=== PATIENT | male | born 1960 ===

== ENCOUNTER 2018-12-13 17:44 | Emergency (ER) | payer OTHER ==
[2018-12-13 19:26] VITALS: BMI 40.8
--- NOTE | 2018-12-13 19:51 | ED PDOC ---
Arrival/HPI - General Chief Complaint: Medical Clearance Time Seen by Provider: 12/13/18 19:22 Historian: Patient - History of Present Illness Narrative History of Present Illness (Text): 12/13/18 19:36 58 year old male, whose past medical history includes diabetes, who presents to the Emergency department for "not feeling right today" after starting a new hypoglycemic medication this morning. Patient reports he went to his PMD yesterday and was told his sugar was high, which has never happened to him before. Patient notes he went to work today and started to feel anxious after his coworkers and him were talking about it. Patient states Dr. Gupta told him to come in for blood work in 6 weeks after making diet changes. Patient denies vomiting, fevers, chills or any other complaints. PMD: Konrad Peralta Time/Duration: Prior to Arrival Symptom Onset: Sudden Symptom Course: Resolved Activities at Onset: Light Past Medical History - Provider Review Nursing Documentation Reviewed: Yes - Past History Past History: No Previous - Infectious Disease Hx of Infectious Diseases: None - Tetanus Immunization Tetanus Immunization: Unknown - Past Medical History Past Medical History: No Previous - Endocrine/Metabolic Hx Diabetes Mellitus Type 2: Yes - Psychiatric Hx Depression: Yes Hx Emotional Abuse: No Hx Physical Abuse: No Hx Substance Use: Yes (6 YEARS AGO) - Past Surgical History Past Surgical History: No Previous - Anesthesia Hx Anesthesia: No Hx Anesthesia Reactions: No Hx Malignant Hyperthermia: No - Suicidal Assessment Feels Threatened In Home Enviroment: No Family/Social History - Physician Review Nursing Documentation Reviewed: Yes Family/Social History: No Known Family HX Smoking Status: Former Smoker Hx Alcohol Use: No Hx Substance Use: Yes (6 YEARS AGO) Hx Substance Use Treatment: No Allergies/Home Meds Allergies/Adverse Reactions: Allergies Iodinated Contrast- Oral and IV Dye [Iodinated Contrast Media - IV Dye] Allergy (Verified 12/13/18 19:26) ANAPHYLAXIS shellfish derived Allergy (Verified 12/13/18 19:26) ANAPHYLAXIS Home Medications: Home Meds Medication Instructions Recorded Confirmed Amoxicillin [Amoxil 500 mg Cap] 500 mg PO TID 10/05/16 10/05/16 Canagliflozin [Invokana] 100 mg PO DAILY 10/05/16 10/05/16 Review of Systems - Physician Review All systems were reviewed & negative as marked: Yes - Review of Systems Constitutional: Normal. absent: Fevers, Night Sweats Gastrointestinal: Normal. absent: Diarrhea, Nausea, Vomiting Psychiatric: Anxiety (pt notes he became a little anxious earlier today). absent: Normal Physical Exam Vital Signs Reviewed: Yes Vital Signs Temp Pulse Resp BP Pulse Ox 12/13/18 19:29 97.9 F 92 H 20 173/92 H 100 Temperature: Afebrile Blood Pressure: Hypertensive Pulse: Tachycardic Respiratory Rate: Normal Appearance: Positive for: Well-Appearing, Non-Toxic Pain Distress: None Mental Status: Positive for: Alert and Oriented X 3 Finger Stick Blood Glucose: 148 Medical Decision Making ED Course and Treatment: 12/13/18 19:36 Impression: 58 year old male presents to the Emergency department for medical screening Plan: -- Reassess and disposition Prior Visits: Notes and results from previous visits were reviewed. Progress Notes: 12/13/18 19:36 Patient's glucose is 148. Patient will be discharged. Patient has an appointment to see Dr. Gupta for blood work in 6 weeks. - Scribe Statement The provider has reviewed the documentation as recorded by the Scribe Beatriz Ruiz All medical record entries made by the Scribe were at my direction and personally dictated by me. I have reviewed the chart and agree that the record accurately reflects my personal performance of the history, physical exam, medical decision making, and the department course for this patient. I have also personally directed, reviewed, and agree with the discharge instructions and disposition. Disposition/Present on Arrival - Present on Arrival Any Indicators Present on Arrival: No History of DVT/PE: No History of Uncontrolled Diabetes: No Urinary Catheter: No History of Decub. Ulcer: No History Surgical Site Infection Following: None - Disposition Have Diagnosis and Disposition been Completed?: No Diagnosis: Diabetic acidosis, type II, Medication reaction Disposition: HOME/ ROUTINE Disposition Time: 20:10 Condition: IMPROVED Discharge Instructions (ExitCare): Type 2 Diabetes Additional Instructions: Follow up with your PCP in a week and continue your medication as prescribed. [place] [facility] [place] Follow up with primary Forms: [employer] ([place]), WORK NOTE
[2018-12-13 20:38] VITALS: BP 162/72; PULSE 89; RESP 18; TEMP 98.2; O2SAT 98
== END 2018-12-13 20:10 | disposition home or self-care (01) ==
LOC: ED 17:44
DX: E11.10 Type 2 diabetes mellitus with ketoacidosis without coma (principal); Z79.84 Long term (current) use of oral hypoglycemic drugs; T50.995A Adverse effect of other drugs, medicaments and biological substances, initial encounter; Y92.89 Other specified places as the place of occurrence of the external cause